=== PATIENT | male | born 2005 | race Caucasian/White ===

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

== ENCOUNTER 2023-11-09 17:52 | Inpatient (IN) | payer MEDICARE, MEDICAID ==
[~2023-11-09] VITALS: Ht 160 cm; Wt 48.6 kg
[~2023-11-09 17:52] MED LIST changes: +LITH150C PO; -LITH600C; +LITH600C PO; +PANT40TA29 PO; +QUET50TA67 PO
[2023-11-09] MEDS ORDERED: QUET300T93 PO (18:07)
[2023-11-09] MEDS ORDERED: BUPR-70 PO (18:07)
[2023-11-09] MEDS ORDERED: VENL75TA2 PO (18:07)
[2023-11-09 18:56] LABS: HEMATOCRIT 39.2 % (42.0-52.0); HEMOGLOBIN 12.9 g/dl (13.5-17.5); MEAN CORPUSCULAR HEMOGLOBIN 29.6 pg (27.0-33.0); MEAN CORPUSCULAR HGB CONC 32.9 g/dl (32.0-36.5); MEAN CORPUSCULAR VOLUME 89.9 fl (80.0-96.0); PLATELET COUNT, AUTOMATED 286 10^3/uL (150-450); RED BLOOD COUNT 4.36 10^6/uL (4.30-6.10); WHITE BLOOD COUNT 6.5 10^3/uL (4.0-10.0)
[2023-11-09 19:15] LABS: ETHYL ALCOHOL (ETHANOL) < 0.003 % (0.000-0.010)
[2023-11-09 19:17] LABS: ALBUMIN 3.9 G/DL (3.2-5.2); ALKALINE PHOSPHATASE 72 U/L (46-116); ALT/SGPT 12 U/L (7.0-40); AST/SGOT 12 U/L (<34); BILIRUBIN,DIRECT 0.1 MG/DL (<0.4); BILIRUBIN,TOTAL 0.4 MG/DL (0.3-1.2); BLOOD UREA NITROGEN 14 MG/DL (9-23); CALCIUM LEVEL 8.5 MG/DL (8.5-10.1); CARBON DIOXIDE LEVEL 27 MMOL/L (20-31); CHLORIDE LEVEL 106 MMOL/L (98-107); CREATININE FOR GFR 0.76 MG/DL (0.70-1.30); GLUCOSE, FASTING 85 MG/DL (60-100); SALICYLATE LEVEL < 3.0 MG/DL (<30); SODIUM LEVEL 137 MMOL/L (136-145); TOTAL PROTEIN 6.7 G/DL (5.7-8.2)
[2023-11-09 19:19] LABS: THYROID STIMULATING HORMONE 1.277 uIU/ML (0.48-4.17)
[2023-11-09 19:25] LABS: LITHIUM LEVEL 0.46 MMOL/L (1.0-1.20)
[2023-11-09 20:33] LABS: AMPHETAMINES LEVEL URINE NEGATIVE (NEGATIVE); BARBITURATES URINE NEGATIVE (NEGATIVE); BENZODIAZEPINES URINE NEGATIVE (NEGATIVE); CANNABINOIDS URINE NEGATIVE (NEGATIVE); COCAINE METABOLITE URINE NEGATIVE (NEGATIVE); METHADONE URINE NEGATIVE (NEGATIVE); OPIATES URINE NEGATIVE (NEGATIVE); PHENCYCLIDINE URINE NEGATIVE (NEGATIVE)
[2023-11-09] MEDS ORDERED: HOME MED LIST COMPLETE! XX SCH (21:45)
[2023-11-10] MEDS: QUEtiapine 300MG XR TABLET (SEROQUEL XR) PO SCH ×2 (01:06→21:00)
[2023-11-10] MEDS: LITHIUM CARBONATE 600MG CAP PO ONE (01:06)
[2023-11-10] MEDS: VENLAFAXINE **XR** 75MG CAPSULE PO SCH (08:59)
[2023-11-10] MEDS ORDERED: buPROPion (WELLBUTRIN SR) 100 MG SR TAB PO SCH (09:00)
[2023-11-10] MEDS ORDERED: ACETAMINOPHEN TAB 650MG DOSE (2X325MG) PO PRN (13:05)
[2023-11-10] MEDS ORDERED: diphenhydrAMINE 25MG CAP PO PRN (13:05)
[2023-11-10] MEDS ORDERED: IBUPROFEN 400MG TAB PO PRN (13:05)
[2023-11-10] MEDS ORDERED: MOM 30ML SUSPENSION UDC PO PRN (13:05)
[2023-11-10] MEDS ORDERED: MAALOX 30 ML SUSP *UDC PO PRN (13:05)
[2023-11-10 17:18] VITALS: BP 120/62; TEMP 97.9; O2SAT 98
[2023-11-10] MEDS ORDERED: VENLAFAXINE **XR** 75MG CAPSULE PO SCH (21:00)
[2023-11-10] MEDS ORDERED: LITHIUM CARBONATE 600MG CAP PO SCH (21:00)
[2023-11-10] MEDS ORDERED: VENL75CA47 PO (22:49)
[2023-11-10] MEDS: LITHIUM CARBONATE 600MG CAP PO SCH (23:00)
[2023-11-10] MEDS: traZODone 50 MG TAB PO PRN (23:00)
[2023-11-11 06:38] VITALS: BP 95/60; TEMP 98; O2SAT 100
[2023-11-11] MEDS: buPROPion (WELLBUTRIN SR) 100 MG SR TAB PO SCH (08:46)
[2023-11-11] MEDS: VENLAFAXINE **XR** 75MG CAPSULE PO SCH (08:47)
[2023-11-11] MEDS ORDERED: VENLAFAXINE 37.5 MG TAB PO SCH (09:00)
[2023-11-11] MEDS ORDERED: VENLAFAXINE **XR** 75MG CAPSULE PO SCH (09:00)
[2023-11-11] MEDS: QUEtiapine FUMARATE 50MG TAB PO SCH (14:01)
[2023-11-11 18:22] VITALS: BP 117/75; TEMP 98.4
[2023-11-12 06:35] VITALS: BP 90/52; TEMP 97.3; O2SAT 98
[2023-11-12 15:42] VITALS: BP 109/69; TEMP 97.7
[2023-11-13 06:26] VITALS: BP 90/52; TEMP 97.7; O2SAT 97
[2023-11-13] MEDS: buPROPion **SR TABLET** (ZYBAN) 150MG PO SCH (09:00)
[2023-11-13] MEDS ORDERED: VENL75CA47 PO (13:13)
[2023-11-13] MEDS ORDERED: QUET300T93 PO (13:13)
[2023-11-13] MEDS ORDERED: BUPR15TASR PO (13:13)
[2023-11-13] MEDS ORDERED: LITH600C PO (13:13)
[2023-11-13] MEDS ORDERED: QUET50TA4 PO (13:13)
[2023-11-13 18:08] VITALS: BP 113/69; TEMP 98.1
[2023-11-14 06:22] VITALS: BP 85/53; TEMP 97.2
[2023-11-14 08:15] VITALS: BP 104/76
[2023-11-14 08:37] LABS: CHOLESTEROL RISK RATIO 2.3 (<5); HDL CHOLESTEROL 57.8 MG/DL (>40); LDL CHOLESTEROL 66.2 MG/DL (<100); NON-HDL-C 75.2 MG/DL
== END 2023-11-14 10:07 | disposition home or self-care (01) | DRG 885 ==
LOC: M ED 17:52 → M ED INP 11-10 13:01 → M PSY 11-10 15:42
PROVIDERS: ADMIT Psychiatry & Neurology Psychiatry; ATTEND Student in an Organized Health Care Education/Training Program
DX: F32.3 Major depressive disorder, single episode, severe with psychotic features (principal); R45.851 Suicidal ideations; F60.1 Schizoid personality disorder; F84.0 Autistic disorder; F43.10 Post-traumatic stress disorder, unspecified; R63.0 Anorexia; F10.11 Alcohol abuse, in remission; F60.3 Borderline personality disorder; R63.4 Abnormal weight loss; Z62.810 Personal history of physical and sexual abuse in childhood; Z62.811 Personal history of psychological abuse in childhood; Z79.899 Other long term (current) drug therapy; Z88.8 Allergy status to other drugs, medicaments and biological substances; Z56.0 Unemployment, unspecified

== ENCOUNTER → 2024-05-20 | Outpatient (CLI) | payer MEDICARE, MEDICAID ==
[~2024-05-20] MED LIST changes: +BUPR-70 PO; +BUPR15TASR PO; +QUET300T93 PO; +QUET50TA4 PO; +VENL75CA47 PO; +VENL75TA2 PO
== END ==
LOC: M RAD 14:51
PROVIDERS: ATTEND Physician Assistant
DX: R10.2 Pelvic and perineal pain (principal); R19.04 Left lower quadrant abdominal swelling, mass and lump

== ENCOUNTER 2024-06-03 09:55 | Emergency (ER) | payer MEDICARE, MEDICAID ==
[~2024-06-03] VITALS: Ht 160 cm; Wt 50.0 kg
[2024-06-03 11:48] LABS: BASO % 0.5 % (0.0-1.0); EOS # 0.1 10^3/uL (0.0-0.5); EOS % 1.3 % (0.0-3.0); HEMATOCRIT 39.3 % (42.0-52.0); LYMPH # 1.6 10^3/uL (1.5-5.0); LYMPH % 20.6 % (24.0-44.0); MEAN CORPUSCULAR HEMOGLOBIN 28.8 pg (27.0-33.0); MEAN CORPUSCULAR HGB CONC 33.1 g/dl (32.0-36.5); MEAN CORPUSCULAR VOLUME 87.1 fl (80.0-96.0); MONO # 0.5 10^3/uL (0.0-0.8); NEUTROPHILS # 5.3 10^3/uL (1.5-8.5); NEUTROPHILS % 70.3 % (36.0-66.0); PLATELET COUNT, AUTOMATED 250 10^3/uL (150-450); RED BLOOD COUNT 4.51 10^6/uL (4.30-6.10); WHITE BLOOD COUNT 7.5 10^3/uL (4.0-10.0)
[2024-06-03] MEDS: NS 1,000 ML IV ONE (12:15)
[2024-06-03 12:19] LABS: LIPASE 24 U/L (12-53)
[2024-06-03 12:21] LABS: ETHYL ALCOHOL (ETHANOL) < 0.003 % (0.000-0.010)
[2024-06-03 12:22] LABS: SALICYLATE LEVEL < 3.0 MG/DL (<30)
[2024-06-03 12:23] LABS: ALKALINE PHOSPHATASE 80 U/L (46-116); ALT/SGPT 14 U/L (7.0-40); AST/SGOT 12 U/L (<34); BILIRUBIN,DIRECT 0.1 MG/DL (<0.4); BILIRUBIN,TOTAL 0.4 MG/DL (0.3-1.2); BLOOD UREA NITROGEN 14 MG/DL (9-23); CALCIUM LEVEL 8.4 MG/DL (8.5-10.1); CARBON DIOXIDE LEVEL 24 MMOL/L (20-31); CHLORIDE LEVEL 106 MMOL/L (98-107); CK-MB VALUE MASS < 1.0 NG/ML (<3.6); CREATININE FOR GFR 0.72 MG/DL (0.70-1.30); GLUCOSE, FASTING 94 MG/DL (60-100); LITHIUM LEVEL < 0.10 MMOL/L (1.0-1.20); MAGNESIUM LEVEL 1.9 MG/DL (1.8-2.4); POTASSIUM SERUM 3.7 MMOL/L (3.5-5.1); SODIUM LEVEL 136 MMOL/L (136-145); TOTAL PROTEIN 6.9 G/DL (5.7-8.2)
[2024-06-03 12:24] LABS: FREE T4 1.17 NG/DL (0.83-1.43); THYROID STIMULATING HORMONE 1.405 uIU/ML (0.48-4.17)
[2024-06-03 12:26] LABS: CPK CREATINE PHOSPHOKINASE 63 U/L (46-171); MB/CK RELATIVE INDEX 1.58 (< OR =4)
[2024-06-03 12:55] LABS: AMPHETAMINES LEVEL URINE NEGATIVE (NEGATIVE); BARBITURATES URINE NEGATIVE (NEGATIVE); BENZODIAZEPINES URINE NEGATIVE (NEGATIVE); COCAINE METABOLITE URINE NEGATIVE (NEGATIVE); METHADONE URINE NEGATIVE (NEGATIVE); OPIATES URINE NEGATIVE (NEGATIVE)
[2024-06-03 12:55] LABS: D-DIMER QUANT 0.29 ug/mL (<0.5); INR 1.08; PARTIAL THROMBOPLASTIN TIME 29.5 SECONDS (24.8-34.2); PROTHROMBIN TIME 13.7 SECONDS (12.5-14.5)
[2024-06-03 12:56] LABS: CANNABINOIDS URINE NEGATIVE (NEGATIVE); PHENCYCLIDINE URINE NEGATIVE (NEGATIVE)
[2024-06-03] MEDS ORDERED: ISOVUE-370 76% 100ML VIAL As Ordered ONE (13:55)
[2024-06-03 15:15] VITALS: BP 98/61; TEMP 97.4; O2SAT 99
== END 2024-06-03 15:40 | disposition home or self-care (01) ==
LOC: EDSEX 09:55 → EDBD 09:55 → M ED 09:55
DX: R00.0 Tachycardia, unspecified (principal); F43.10 Post-traumatic stress disorder, unspecified; F20.9 Schizophrenia, unspecified; F32.A Depression, unspecified; F10.10 Alcohol abuse, uncomplicated; Z88.8 Allergy status to other drugs, medicaments and biological substances; Z79.899 Other long term (current) drug therapy
CPT/HCPCS: 70450; 71045; 71275; 74177; 80048; 80076; 80143; 80178; 80307; 81001; 82077; 82140; 82550; 82553; 83605; 83690; 83735; 83880; 84439; 84443; 84484; 85025; 85379; 85610; 85730; 87040; 93005; 93041; 94760; 96360; 99285; Q9967